=== PATIENT | male | born 2000 | race Native Hawaiian/Other Pacific Islander ===

== ENCOUNTER 2020-04-20 15:18 | Emergency (ER) | payer SELFPAY ==
--- NOTE | 2020-04-20 15:46 | Event Note ---
ED Screening Note Date of service: 04/20/20 Time: 15:43 ED Screening Note: This 19-year-old male presents with wound laceration from a tree branch that was sustained earlier today while cutting down trees at the house today This initial assessment/diagnostic orders/clinical plan/treatment(s) is/are subject to change based on patients health status, clinical progression and re- assessment by fellow clinical providers in the ED. Further treatment and workup at subsequent clinical providers discretion. Patient/guardian urged not to elope from the ED as their condition may be serious if not clinically assessed and managed. Initial orders include: Foreign body x-ray of right thigh. Wound irrigation, wound repair
--- NOTE | 2020-04-20 16:14 | XRay Report ---
RIGHT FEMUR 4 VIEWS INDICATION / CLINICAL INFORMATION: wound. COMPARISON: None available. FINDINGS: No fracture or other skeletal abnormality. No radiopaque foreign body. Signer Name: Darek Chisholm MD Signed: 04/20/2020 4:09 PM Workstation Name: [email or web address]
--- NOTE | 2020-04-20 16:56 | Emergency Department Report ---
- General Chief Complaint: Wound/Laceration Stated Complaint: WOOD IN LEG/INJURY Time Seen by Provider: 04/20/20 16:42 Source: patient Mode of arrival: Wheelchair Limitations: Language Barrier - History of Present Illness Initial Comments: Patient is a 19-year-old male that presents emergency room for laceration to his right upper thigh. Patient states he would never pierced his leg or punctured his leg. Patient states the branch of the would never went into his leg, the branches brushed over the skin and cut the leg. Patient states the pain is a 4 out of 10. Patient states the pain is worse with movement and better with rest and remaining still. Patient states he is not sure when he had his last tetanus. Patient states that the cut happened approximately 4 hours ago. Patient denies recent travel. Patient denies recent international travel. Patient denies exposure to the novel coronavirus. Patient denies sick contacts. Patient denies fever and chills. Patient denies cough. Patient denies diarrhea. Patient denies coming in contact with anybody with symptoms of the novel coronavirus. -: Sudden Extremity Location: Right: Thigh Place: home Patient Tetanus UTD: No Context: accidental Associated Symptoms: pain. denies: loss of feeling/numbness, suspect foreign body present, unable to move injured part, weakness followed by dizziness, nausea/vomiting, fever Treatments Prior to Arrival: bandage - Related Data Previous Rx's Medication Instructions Recorded Last Taken Type HYDROcodone/APAP 7.5-325 [[place] 1 each PO Q6HR PRN #15 tablet 04/20/20 Unknown Rx 7.5/325] Sulfamethoxazole/Trimethoprim 1 each PO BID 7 Days #14 tablet 04/20/20 Unknown Rx [Bactrim DS TAB] Allergies Allergy/AdvReac Type Severity Reaction Status Date / Time No Known Allergies Allergy Unverified 04/20/20 15:41 ED Review of Systems ROS: Stated complaint: WOOD IN LEG/INJURY Other details as noted in HPI Constitutional: denies: chills, fever Eyes: denies: eye pain, eye discharge, vision change ENT: denies: ear pain, throat pain Respiratory: denies: cough, shortness of breath, wheezing Cardiovascular: denies: chest pain, palpitations Endocrine: no symptoms reported Gastrointestinal: denies: abdominal pain, nausea, diarrhea Genitourinary: denies: urgency, dysuria Musculoskeletal: denies: back pain, joint swelling, arthralgia Skin: denies: rash, lesions Neurological: denies: headache, weakness, paresthesias Psychiatric: denies: anxiety, depression Hematological/Lymphatic: denies: easy bleeding, easy bruising ED Past Medical Hx - Past Medical History Previous Medical History?: No - Surgical History Past Surgical History?: No - Family History Family history: no significant - Social History Smoking Status: Never Smoker Substance Use Type: None - Medications Home Medications: Home Medications Medication Instructions Recorded Confirmed Last Taken Type HYDROcodone/APAP 7.5-325 [[place] 1 each PO Q6HR PRN #15 tablet 04/20/20 Unknown Rx 7.5/325] Sulfamethoxazole/Trimethoprim 1 each PO BID 7 Days #14 tablet 04/20/20 Unknown Rx [Bactrim DS TAB] ED Physical Exam - General Limitations: Language Barrier General appearance: alert, in no apparent distress - Head Head exam: Present: atraumatic, normocephalic - Eye Eye exam: Present: normal appearance - ENT ENT exam: Present: mucous membranes moist - Neck Neck exam: Present: normal inspection - Respiratory Respiratory exam: Present: normal lung sounds bilaterally. Absent: respiratory distress - Cardiovascular Cardiovascular Exam: Present: regular rate, normal rhythm. Absent: systolic murmur, diastolic murmur, rubs, gallop - GI/Abdominal GI/Abdominal exam: Present: soft, normal bowel sounds. Absent: distended, tenderness, guarding - Rectal Rectal exam: Present: deferred - Extremities Exam Extremities exam: Present: normal inspection - Back Exam Back exam: Present: normal inspection - Neurological Exam Neurological exam: Present: alert, oriented X3 - Psychiatric Psychiatric exam: Present: normal affect, normal mood - Skin Skin exam: Present: warm, dry, normal color, other (2 lacerations noted. Lacerations are closed proximity, the distal laceration is 6 cm and the proximal laceration is 4 cm. Both are linear). Absent: rash ED Course Vital Signs 04/20/20 04/20/20 04/20/20 15:40 15:41 18:24 Temperature 98.6 F 98.3 F Pulse Rate 83 89 Respiratory 16 18 Rate Blood Pressure 134/68 127/72 [Right] O2 Sat by Pulse 99 100 Oximetry - Reevaluation(s) Reevaluation #1: Initial valuation done. I discussed x-ray results with patient. I discussed procedure with patient. Patient consented to procedure. Timeout done. See procedure note. See consent. 04/20/20 16:55 Reevaluation #2: I was at bedside for 35 minutes for the procedure and laceration closures. See procedure note. Patient tolerated procedure well 04/20/20 17:40 Reevaluation #3: I discussed all results and clinical findings with patient. I discussed plan of care with patient. Patient agrees with plan of care. Patient is stable for discharge. Patient will be discharged home. Patient given discharge instructions. Patient voiced understanding of discharge instructions. 04/20/20 17:57 - Laceration /Wound Repair Right Anterior Distal Thigh Wound Location: lower extremity Wound Length (cm): 6 Wound's Depth, Shape: into muscle, linear Wound Explored: clean Irrigated w/ Saline (ccs): 5 Betadine Prep?: Yes Anesthesia: 1% Lidocaine Volume Anesthetic (ccs): 500 Wound Repaired With: sutures Suture Size/Type: 3:0, nylon Number of Sutures: 7 (Lateral horizontal mattress sutures placed) Deep Layer Suture Size/Type: 3:0 Number Deep Layer Sutures: 2 Sterile Dressing Applied?: Yes Progress: 7 horizontal mattress sutures placed without difficulty. Patient tolerated procedure well. Bleeding was controlled. Wound was irrigated with copious amounts of saline. Procedure was done after adequate anesthesia was achieved with lidocaine 1%. Edges were well approximated and a sterile dressing was applied. Right Anterior Proximal Thigh Wound Location: lower extremity Wound Length (cm): 4 Wound's Depth, Shape: superficial, irregular Wound Explored: clean Irrigated w/ Saline (ccs): 500 Betadine Prep?: Yes Anesthesia: 1% Lidocaine Volume Anesthetic (ccs): 5 Wound Repaired With: sutures Suture Size/Type: 3:0 Number of Sutures: 5 (Horizontal mattress) Deep Layer Suture Size/Type: 3:0 Number Deep Layer Sutures: 2 Sterile Dressing Applied?: Yes Progress: 5 horizontal mattress sutures placed without difficulty. Patient tolerated procedure well. Bleeding was controlled. Wound was irrigated with copious amounts of saline. Procedure was done after adequate anesthesia was achieved with lidocaine 1%. Edges were well approximated and a sterile dressing was applied. ED Medical Decision Making - Radiology Data Radiology results: report reviewed interpreted by me: Right thigh x-ray: No foreign body, no fracture, soft tissue normal. No acute findings. RIGHT FEMUR 4 VIEWS INDICATION / CLINICAL INFORMATION: wound. COMPARISON: None available. FINDINGS: No fracture or other skeletal abnormality. No radiopaque foreign body. - Medical Decision Making Patient is a 19-year-old male who presents emergency room with complaints of 2 lacerations to his right thigh. Lacerations are in close proximity and were a centimeter apart. Patient had laceration closure done. See procedure note. I was at the bedside for 35 minutes for the procedure. Prior to the procedure, consent was received from the patient. Patient had an x-ray done which were essentially unremarkable. No foreign body noted on the x-ray. Patient is stable for discharge. Patient given discharge structures. Patient given suture instructions. Patient was also given a tetanus shot while in the ER. - Differential Diagnosis Laceration, leg pain, need of tetanus Critical care attestation.: If time is entered above; I have spent that time in minutes in the direct care of this critically ill patient, excluding procedure time. ED Disposition Clinical Impression: Laceration of right thigh Qualifiers: Encounter type: initial encounter Qualified Code(s): S71.111A - Laceration without foreign body, right thigh, initial encounter Thigh pain Qualifiers: Laterality: right Qualified Code(s): M79.651 - Pain in right thigh Disposition: DC-01 TO HOME OR SELFCARE Is pt being admited?: No Does the pt Need Aspirin: No Condition: Stable Instructions: Laceration Care, Adult, Wound Infection, [id number], Sutured Wound Care, Sutures, Jen, or Adhesive Wound Closure, [id number] Additional Instructions: Patient to follow-up with primary care in 2 to 3 days. Patient to follow-up with orthopedist in 2 to 3 days. Patient to rest. Patient to increase water. Patient to avoid strenuous exercise or heavy lifting until cleared by orthopedist. Patient to take Tylenol or ibuprofen as needed for pain. Patient to take meds as directed. Patient to return to the ER if condition worsens, changes or new symptoms arise. Wound care given to patient. Patient to keep site clean and dry. Patient to watch out for signs of infection. Patient to take antibiotics as directed. P atient patient did take pain medications as needed. Patient did not wet the site for 3 days. Patient did not submerge the leg until the sutures are removed. Patient to follow-up with primary care and orthopedist for clearance to return to work. Patient to stay off work until cleared by the primary care and orthopedist. Patient to have the sutures removed in 7 to 10 days. Prescriptions: Sulfamethoxazole/Trimethoprim [Bactrim DS TAB] 1 each PO BID 7 Days #14 tablet HYDROcodone/APAP 7.5-325 [[place] 7.5/325] 1 each PO Q6HR PRN #15 tablet PRN Reason: Pain Referrals: MASSIMO COLLINS MD [Staff Physician] - 2-3 Days ANGÉLICA PRASAD MD [Staff Physician] - 2-3 Days Time of Disposition: 17:56
[2020-04-20] MEDS ORDERED: DIPHtheria,PERTUSSIS(ACELL),TETANUS VACCINE/PF 0.5 ML VIAL IM ONE (16:57)
[2020-04-20] MEDS ORDERED: LIDOCAINE (1%) 10 MG/1 ML VIAL 20 ML MDV INFILTRATI ONE (16:57)
[2020-04-20] MEDS ORDERED: SODIUM CHLORIDE IRRI 500 ML 500 ML IR ONE (17:02)
[2020-04-20] MEDS ORDERED: BACITRACIN ZINC OINT 28.4 GM TP ONE (18:03)
[2020-04-20 18:25] VITALS: BP 127/72
== END 2020-04-20 18:24 | disposition home or self-care (01) ==
LOC: ED 15:18
DX: S71.111A Laceration without foreign body, right thigh, initial encounter (principal); M79.651 Pain in right thigh; Z79.899 Other long term (current) drug therapy; W45.8XXA Other foreign body or object entering through skin, initial encounter; Y93.89 Activity, other specified; Y92.009 Unspecified place in unspecified non-institutional (private) residence as the place of occurrence of the external cause; Y99.8 Other external cause status
CPT/HCPCS: 90471; 90715